=== PATIENT | female | born 1980 | race African-American/Black ===

== ENCOUNTER 2020-08-17 10:09 | Inpatient (IN) ==
[2020-08-17] MEDS: hydrALAZINE 20 MG/1 ML VIAL IV PRN ×2 (11:20→11:46)
[2020-08-17 11:27] LABS: Basophils % 0.6 % (0.0-0.8); Eosinophils % 0.6 % (0.00-10.9); Hematocrit 28.3 VOL% (35.7-47.0); Hemoglobin 8.8 GM/DL (12.0-16.0); Immature Granulocytes % 0.6 %; Immature Granulocytes Absolute 0.03 #; Lymphocytes # 1.4 10*3/uL (1.4-4.0); Lymphocytes % 27.3 % (21.3-54.2); Mean Corpuscular HGB Conc 31.1 GM/DL (32-36); Mean Corpuscular Volume 83.2 FL (87-102); Monocytes % 8.8 % (1.7-12.7); Neutrophils % 62.1 % (38.7-73.9); Platelet Count 176 T/CUMM (130-400); White Blood Count 5.1 T/CUMM (4-12)
[2020-08-17 11:41] LABS: PT Patient Result 10.6 SECS (9.8-11.9); Partial Thromboplastin Time 27.9 SECS (23.9-33.8)
[2020-08-17 11:47] LABS: Eosinophils 1 % (0-10); Hypochromasia 1+; Lymphocytes 29 % (20-55); Microcytosis 1+; Ovalocytes Slight; Segmented Neutrophils 64 % (50-85); Total Cells Counted 100
[2020-08-17 11:48] LABS: Platelet Estimate Adequate
[2020-08-17 12:13] LABS: Bilirubin,Urine Negative (Negative); Blood, Urine Negative (Negative); Glucose,Urine (UA) Negative (Negative); Ketones,Urine Negative (Negative); Mucus,Urine Many /LPF (Occasional); Nitrite,Urine Negative (Negative); Protein,Urine 100 MG/DL; RBC,Urine 3 /HPF (0-4); Squamous Epithelial Cell,Urine Few /HPF (0-10); Urine Appearance Slightly Hazy (Clear); Urine Color Amber (Yellow); Urine Specific Gravity 1.024 (1.001-1.035); Urine Urobilinogen < 2.0 EU/DL (0.2-1.0); WBC,Urine 24 /HPF (0-6)
[2020-08-17 13:27] LABS: Alanine Aminotransferase 18 U/L (13-56); Albumin 2.6 G/DL (3.4-5.0); Alkaline Phosphatase 77 U/L (45-117); Aspartate Amino Transferase 18 U/L (0-37); Bilirubin,Direct < 0.100 MG/DL (0.0-0.20); Blood Urea Nitrogen 6 MG/DL (7-18); Calcium 8.2 MG/DL (8.5-10.1); Carbon Dioxide 23 MMOL/L (21-32); Estimated Glom Filtration Rate 210 ML/MIN; Glucose 74 MG/DL (74-106); Osmolality,Calculated 273.5 MOS/KG (273-304); Potassium 3.4 MMOL/L (3.5-5.1); Sodium 139 MMOL/L (136-145); Total Protein 6.4 G/DL (5.0-7.5); Uric Acid 4.2 MG/DL (2.6-6.0)
[2020-08-17] MEDS ORDERED: LABETALOL 20 MG/4 ML SYRINGE IV ONE (14:11)
[2020-08-17] MEDS ORDERED: LABETALOL 100 MG/20 ML VIAL IV ONE ×4 (16:08→17:13)
[2020-08-17] MEDS ORDERED: BETAMETH SODIUM PHOS/ACETATE 30 MG/5 ML VIAL IM SCH (17:30)
[2020-08-17] MEDS ORDERED: MAGNESIUM SULF RIDER 100 ML IV ONE (18:01)
[2020-08-17] MEDS ORDERED: AMPICILLIN INJ 2,000 MG in SODIUM CHLORIDE 0.9% 100 ML IV ONE (18:02)
[2020-08-17] MEDS ORDERED: ONDANSETRON 4 MG/2 ML VIAL IV PRN (18:03)
[2020-08-17] MEDS ORDERED: BUTORPHANOL 2 MG/ML VIAL IV PRN (18:03)
[2020-08-17] MEDS: LACTATED RINGERS 1,000 ML IV SCH (18:20)
[2020-08-17] MEDS ORDERED: OXYTOCIN/LR 20 UNIT/1,000 ML BAG IV SCH (18:30)
[2020-08-17] MEDS: MAGNESIUM SULF DRIP 40 GM/1,000 ML ML IV SCH (18:40)
[2020-08-17] MEDS ORDERED: LACTATED RINGERS 1,000 ML IV SCH (19:00)
[2020-08-17] MEDS ORDERED: ACETAMINOPHEN 500 MG TABLET PO ONE (21:40)
[2020-08-17] MEDS: AMPICILLIN INJ 1,000 MG in SODIUM CHLORIDE 0.9% 100 ML IV SCH (22:02)
[2020-08-18] MEDS: AMPICILLIN INJ 1,000 MG in SODIUM CHLORIDE 0.9% 100 ML IV SCH ×4 (02:04→15:46)
[2020-08-18] MEDS: LABETALOL 100 MG TABLET PO SCH ×2 (02:27→17:16)
[2020-08-18] MEDS: MEPERIDINE 50 MG/1 ML VIAL IV PRN ×2 (04:31→07:03)
[2020-08-18] MEDS: LACTATED RINGERS 1,000 ML IV SCH (04:55)
[2020-08-18] MEDS ORDERED: PROMETHAZINE 25 MG/1 ML VIAL IM ONE (07:20)
[2020-08-18] MEDS ORDERED: diphenhydrAMINE 50 MG/1 ML VIAL IV PRN ×3 (07:20→15:33)
[2020-08-18] MEDS ORDERED: NALOXONE 0.4 MG/ML VIAL IV PRN (07:20)
[2020-08-18] MEDS ORDERED: FAMOTIDINE 20 MG/2 ML VIAL IV ONE (07:20)
[2020-08-18] MEDS ORDERED: CITRIC ACID/SODIUM CITRATE 30 ML UDCUP PO ONE (07:20)
[2020-08-18] MEDS ORDERED: ePHEDrine 50 MG/ML VIAL IV PRN (07:20)
[2020-08-18] MEDS ORDERED: hydrOXYzine HCL 25 MG/1 ML VIAL IM PRN (07:20)
[2020-08-18] MEDS ORDERED: fentaNYL 2 MCG/ROPIV 0.2% EPID 100 ML EPIDURAL SCH (07:30)
[2020-08-18 07:35] LABS: Rubella Antibody IgG Result Reactive (NonReactive)
[2020-08-18 07:51] LABS: HIV Antigen/Antibody Result Nonreactive (Nonreactive); Hepatitis B Surface Ag Quant < 0.10 Index; Hepatitis B Surface Ag Result Non-Reactive (NonReactive)
[2020-08-18] MEDS ORDERED: ROPIVACAINE 0.5% 30 ML VIAL ONE (10:31)
[2020-08-18] MEDS ORDERED: FUROSEMIDE 40 MG/4 ML VIAL IV ONE (12:40)
[2020-08-18] MEDS ORDERED: FUROSEMIDE 40 MG/4 ML VIAL ONE (12:43)
[2020-08-18] MEDS ORDERED: TRANEXAMIC ACID 1,000 MG/10 ML VIAL ONE (13:00)
[2020-08-18] MEDS ORDERED: CARBOPROST TROMETHAMINE 250 MCG/ML AMP IM ONE (13:00)
[2020-08-18] MEDS ORDERED: miSOPROStoL 200 MCG TABLET ONE (13:00)
[2020-08-18] MEDS ORDERED: OXYTOCIN/LR 20 UNIT/1,000 ML BAG IV ONE ×2 (13:13→14:25)
[2020-08-18] MEDS ORDERED: ceFAZolin 3,000 MG in SYRINGE 1 EACH IV ONE (13:13)
[2020-08-18] MEDS ORDERED: fentaNYL 100 MCG/2 ML VIAL ONE (13:18)
[2020-08-18] MEDS ORDERED: LIDOCAINE 2% 5 ML VIAL ONE (13:20)
[2020-08-18] MEDS ORDERED: propofoL 200 MG/20 ML VIAL IV ONE (13:20)
[2020-08-18] MEDS ORDERED: ROCURONIUM 50 MG/5 ML VIAL IV ONE (13:20)
[2020-08-18] MEDS ORDERED: SUCCINYLCHOLINE 200 MG/10 ML VIAL ONE (13:20)
[2020-08-18] MEDS ORDERED: SEVOFLURANE 1 UNIT/15 MINUTE INH ONE (13:21)
[2020-08-18] MEDS ORDERED: MIDAZOLAM 2 MG/2 ML VIAL ONE (13:22)
[2020-08-18] MEDS ORDERED: PHENYLEPHRINE 1 MG/10 ML SYRINGE IV ONE ×2 (13:52→14:06)
[2020-08-18] MEDS ORDERED: DEXAMETHASONE 4 MG/1 ML VIAL ONE (13:54)
[2020-08-18] MEDS ORDERED: ONDANSETRON 4 MG/2 ML VIAL ONE (13:55)
[2020-08-18 14:01] LABS: Cord Arterial Blood HCO3 19.7 MMOL/L
[2020-08-18 14:04] LABS: Cord Venous Blood HCO3 20.2 MMOL/L; Cord Venous Blood PCO2 49.8 MMHG; Cord Venous Blood PO2 34.7
[2020-08-18] MEDS ORDERED: ONDANSETRON 4 MG/2 ML VIAL IV PRN (14:25)
[2020-08-18] MEDS ORDERED: ACETAMINOPHEN 325 MG TABLET PO PRN (14:25)
[2020-08-18] MEDS ORDERED: RHO(D) IMMUNE GLOBULIN 300 MCG SYRINGE IM ONE (14:25)
[2020-08-18] MEDS ORDERED: miSOPROStoL 200 MCG TABLET RECTAL ONE (14:27)
[2020-08-18] MEDS ORDERED: HYDROmorphone 2 MG/1 ML VIAL IV PRN (15:33)
[2020-08-18] MEDS ORDERED: POTASSIUM CHLORIDE 10 MEQ TABLET PO ONE ×2 (16:03→16:30)
[2020-08-18] MEDS: MAGNESIUM SULF DRIP 40 GM/1,000 ML ML IV SCH (16:59)
[2020-08-18] MEDS: hydrALAZINE 10 MG TABLET PO SCH ×2 (17:27→21:05)
[2020-08-18] MEDS: METOPROLOL TARTRATE 25 MG TABLET PO SCH (21:05)
[2020-08-18] MEDS: DOCUSATE SODIUM 100 MG CAPSULE PO SCH (21:08)
[2020-08-18] MEDS ORDERED: LACTATED RINGERS 1,000 ML IV SCH (22:00)
[2020-08-18] MEDS: IBUPROFEN 800 MG TABLET PO PRN (23:17)
[2020-08-19] MEDS: oxyCODONE/ACETAMINOPHEN 5-325 MG TABLET PO PRN ×2 (06:42→15:16)
[2020-08-19 07:03] LABS: Basophils % 0.2 % (0.0-0.8); Eosinophils % 0.1 % (0.00-10.9); Hematocrit 32.2 VOL% (35.7-47.0); Hemoglobin 9.6 GM/DL (12.0-16.0); Immature Granulocytes % 0.7 %; Immature Granulocytes Absolute 0.08 #; Lymphocytes # 1.2 10*3/uL (1.4-4.0); Lymphocytes % 10.4 % (21.3-54.2); Mean Corpuscular HGB Conc 29.8 GM/DL (32-36); Mean Corpuscular Volume 83.4 FL (87-102); Mean Platelet Volume 10.1 FL (9.6-12.0); Neutrophils % 80.6 % (38.7-73.9); Platelet Count 235 T/CUMM (130-400); Red Blood Count 3.86 MC/CUMM (3.8-5.5); Red Cell Distribution Width 21.8 % (9.3-17.3); White Blood Count 11.9 T/CUMM (4-12)
[2020-08-19 07:26] LABS: Osmolality,Calculated 271.8 MOS/KG (273-304); Potassium 4.1 MMOL/L (3.5-5.1)
[2020-08-19] MEDS: hydrALAZINE 10 MG TABLET PO SCH (08:50)
[2020-08-19] MEDS: MULTIVITAMIN (PRENATAL) TABLET PO SCH (08:50)
[2020-08-19] MEDS: METOPROLOL TARTRATE 25 MG TABLET PO SCH ×2 (08:51→21:47)
[2020-08-19] MEDS: DOCUSATE SODIUM 100 MG CAPSULE PO SCH ×2 (08:51→21:48)
[2020-08-19] MEDS ORDERED: FUROSEMIDE 40 MG/4 ML VIAL IV SCH (09:00)
[2020-08-19] MEDS: hydrALAZINE 25 MG TABLET PO SCH ×3 (12:52→21:47)
[2020-08-19] MEDS: SIMETHICONE CHEW 80 MG TABLET PO PRN (15:15)
[2020-08-19] MEDS: MAGNESIUM HYDROXIDE SUSP 30 ML UDCUP PO PRN ×2 (15:15→21:47)
[2020-08-19] MEDS: IBUPROFEN 800 MG TABLET PO PRN ×2 (15:16→23:46)
[2020-08-20 08:00] VITALS: BP 152/87
[2020-08-20] MEDS ORDERED: FUROSEMIDE 20 MG TABLET ONE (08:14)
[2020-08-20] MEDS: MAGNESIUM HYDROXIDE SUSP 30 ML UDCUP PO PRN (08:17)
[2020-08-20] MEDS: SIMETHICONE CHEW 80 MG TABLET PO PRN (08:17)
[2020-08-20] MEDS: hydrALAZINE 25 MG TABLET PO SCH (08:17)
[2020-08-20] MEDS: DOCUSATE SODIUM 100 MG CAPSULE PO SCH (08:17)
[2020-08-20] MEDS: MULTIVITAMIN (PRENATAL) TABLET PO SCH (08:18)
[2020-08-20] MEDS: METOPROLOL TARTRATE 25 MG TABLET PO SCH (08:18)
[2020-08-20] MEDS ORDERED: DIPH/TET/ACEL PERT BOOSTER VACCINE 0.5 ML VIAL IM ONE (08:34)
[2020-08-20] MEDS ORDERED: FUROSEMIDE 40 MG TABLET PO SCH (09:00)
[2020-08-20] MEDS ORDERED: POTASSIUM CHLORIDE 20 MEQ TABLET PO SCH (09:00)
[2020-08-21] MEDS ORDERED: FUROSEMIDE 20 MG TABLET PO SCH (09:00)
== END 2020-08-20 11:35 | disposition home or self-care (01) | DRG 786 ==
LOC: N.LD 10:09 → N.LDOUT 10:09 → N.LD 10:13 → N.OB 08-19 12:47 → UNDODISIN 08-20 11:35 → N.OB 08-21 11:53
PROVIDERS: ADMIT Obstetrics & Gynecology; ATTEND Obstetrics & Gynecology
PROC: LDCSECT (ICD-10-PCS; 2020-08-18 13:00)